=== PATIENT | female | born 1975 | race Caucasian/White ===

== ENCOUNTER 2022-11-21 08:45 | Inpatient (IN) | payer OTHER ==
[~2022-11-21] VITALS: Ht 160 cm; Wt 76.2 kg
[~2022-11-21 08:45] MED LIST: ADVIL ALLERGY S1 TAB; INTESTINEX680 MG PO; TAMIFLU6 MG/1 ML; ZANTAC150 MG PO
[2022-11-27] MEDS ORDERED: DICLOFENAC SODI75 MG (13:58)
[2022-11-27] MEDS ORDERED: VITAMIN D31250 MCG (13:59)
[2022-11-27] MEDS ORDERED: ABANEU-SL TABL1 EACH (13:59)
[2022-11-27] MEDS ORDERED: FAMOTIDINE40 MG (13:59)
[2022-11-29] MEDS ORDERED: IBU800 MG PO (17:52)
[2022-11-29] MEDS ORDERED: PERCOCET 5-3251 EACH PO (17:52)
[2022-11-29] MEDS ORDERED: SURFAK240 M1 PO (17:52)
== END 2022-11-29 20:38 | disposition home or self-care (01) | DRG 743 ==
LOC: O/R 11-27 06:53 → OB/GYN 11-27 06:53 → SURH 11-27 07:00 → O/R 11-27 09:31 → OB/GYN 11-27 11:30
PROVIDERS: ADMIT Student in an Organized Health Care Education/Training Program; ATTEND Student in an Organized Health Care Education/Training Program
PROC: 0UT70ZZ Resection of Bilateral Fallopian Tubes, Open Approach (ICD-10-PCS; 2022-11-27)
PROC: 0UT10ZZ Resection of Left Ovary, Open Approach (ICD-10-PCS; 2022-11-27)
PROC: 0UT90ZZ Resection of Uterus, Open Approach (ICD-10-PCS; principal; 2022-11-27 07:00)
DX: D25.1 Intramural leiomyoma of uterus (principal); Z20.822 Contact with and (suspected) exposure to COVID-19; D27.1 Benign neoplasm of left ovary